=== PATIENT | male | born 1990 | race Caucasian/White ===

== ENCOUNTER 2017-01-03 20:19 | Emergency (ER) | payer MEDICAID, OTHER ==
[~2017-01-03] VITALS: Ht 170.2 cm; Wt 89.5 kg
[2017-01-03 20:23] VITALS: Ht 170.2 cm; Wt 89.5 kg
[2017-01-03] MEDS ORDERED: IBUPROFEN 600 MG TAB PO ONE (21:00)
[2017-01-03] MEDS ORDERED: DIPHTH/TET/ACEL PERTUSS (ADULT) 0.5 ML VIAL IM* ONE (21:00)
[2017-01-03] MEDS ORDERED: CEPH-443 PO (21:24)
[2017-01-03 21:53] VITALS: BP 138/66; PULSE 47; RESP 16
--- NOTE | 2017-01-07 12:14 | ERD ---
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 The patient is right-hand dominant. No other symptoms or injuries reported. ROS All systems reviewed and are negative except as per history of present illness. Medications Home Meds Active Scripts Cephalexin* (Keflex*) 500 Mg Capsule, 500 MG PO TID for 5 Days, #15 CAP Prov:SAURAV THOMPSON PA-C 01/03/17 Allergies Allergies: Coded Allergies: No Known Allergy (Unverified , 01/03/17) PMhx/Soc Medical and Surgical Hx: pt denies Medical Hx, pt denies Surgical Hx Hx Alcohol Use: No Hx Substance Use: No Hx Tobacco Use: No Smoking Status: Never smoker Physical Exam Vitals Vital Signs Date Time Temp Pulse Resp B/P Pulse Ox O2 Delivery O2 Flow Rate FiO2 01/03/17 21:53 47 16 138/66 100 Room Air 01/03/17 20:23 98.7 78 18 135/74 99 Physical Exam Const: Nontoxic, well-appearing male in no acute distress. Head: Atraumatic Eyes: Normal Conjunctiva ENT: Normal External Ears, Nose and Mouth. Skin: There is an approximate 2 cm laceration noted to the ventral surface of the left thumb. Back: No midline or flank tenderness Ext: No cyanosis, or edema Neur: Awake and alert Psych: Normal Mood and Affect Results 24 hrs Current Medications Medications (Trade) Dose Ordered Sig/Taylor Route PRN Reason Start Time Stop Time Status Last Admin Dose Admin Ibuprofen (Motrin) 600 mg ONCE ONCE PO 01/03/17 21:00 01/03/17 21:01 DC 01/03/17 21:13 Diphtheria/ Tetanus/Acell Pertussis (Adacel) 0.5 ml ONCE ONCE IM* 01/03/17 21:00 01/03/17 21:01 DC 01/03/17 21:13 Procedures/MDM 26-year-old male presents to the emergency department with complaints of left thumb laceration. Laceration Repair by me: Anesthesia: 1% lidocaine locally Location: Left thumb Tendon/Joint/Nerves: No injury Foreign body: None detected after copious irrigation and exploration Technique: Simple Interrupted Sutures Complexity: No subcutaneous sutures/mucosal repair/ edge excision Post Closure Length: 2 cm Patient's bleeding was easily controlled in the department and there is no indication of anemia. No evidence of compartment syndrome, neurologic injury, vascular injury, open joint, tendon laceration, or foreign body. Patient is appropriate for outpatient follow up. 48 hour wound check. Scar minimization instructions given. Departure Diagnosis: Primary Impression: Thumb laceration Encounter type: initial encounter Damage to nail status: without damage Foreign body presence: unspecified Laterality: left Qualified Code: S61.012A - Laceration of left thumb without damage to nail, foreign body presence unspecified, initial encounter Condition: Fair Patient Instructions: Laceration, Hand [facility] Usted se pack hecho un examen mdico de control que le indica que no est en jyothi condicin que requiera tratamiento urgente en el Departamento de Emergencia. Un estudio ms profundo y el tratamiento de grace condicin pueden esperar sin ningn riesgo hasta que usted sea atendida/o en el consultorio de grace mdico o jyothi cl christine. Es responsabilidad suya arreglar jyothi giselle para el seguimiento del lily. MANEJO DE CONDICIONES NO URGENTES EN EL FUTURO 1) Si usted tiene un mdico de atencin primaria: Usted debera llamar a grace mdico de atencin primaria antes de venir al departamento de emergencia. Despus de las horas de consultorio, grace doctor o grace asociado/a est disponible por telfono. El mdico o enfermero de milagro en el servicio telefnico puede asesorarle por alicia medio para atender el problema, o lily contrario se puede programar jyothi giselle. 2) Si usted no tiene un mdico de atencin primaria: Llame al mdico o clnica de referencia que aparece abajo barbara las horas de consultorio para hacer jyothi giselle para que le vean. CLINICAS: [facility] [phone] [address] [facility] [phone] [place] [phone] [facility] [phone] [facility] [phone] [facility] [phone] [address] Additional Instructions: Return in 2 days for wound recheck. Take all the antibiotics. Keep the wound clean, dry, and covered. Return in 7-10 days from today for suture removal. Call your primary care doctor TOMORROW for an appointment during the next 1-2 days.See the doctor sooner or return here if your condition worsens before your appointment time. SAURAV THOMPSON PA-C Jan 07, 2017 12:14
--- NOTE | 2017-01-07 12:14 | ERD ---
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 The patient is right-hand dominant. No other symptoms or injuries reported. ROS All systems reviewed and are negative except as per history of present illness. Medications Home Meds Active Scripts Cephalexin* (Keflex*) 500 Mg Capsule, 500 MG PO TID for 5 Days, #15 CAP Prov:SAURAV THOMPSON PA-C 01/03/17 Allergies Allergies: Coded Allergies: No Known Allergy (Unverified , 01/03/17) PMhx/Soc Medical and Surgical Hx: pt denies Medical Hx, pt denies Surgical Hx Hx Alcohol Use: No Hx Substance Use: No Hx Tobacco Use: No Smoking Status: Never smoker Physical Exam Vitals Vital Signs Date Time Temp Pulse Resp B/P Pulse Ox O2 Delivery O2 Flow Rate FiO2 01/03/17 21:53 47 16 138/66 100 Room Air 01/03/17 20:23 98.7 78 18 135/74 99 Physical Exam Const: Nontoxic, well-appearing male in no acute distress. Head: Atraumatic Eyes: Normal Conjunctiva ENT: Normal External Ears, Nose and Mouth. Skin: There is an approximate 2 cm laceration noted to the ventral surface of the left thumb. Back: No midline or flank tenderness Ext: No cyanosis, or edema Neur: Awake and alert Psych: Normal Mood and Affect Results 24 hrs Current Medications Medications (Trade) Dose Ordered Sig/Taylor Route PRN Reason Start Time Stop Time Status Last Admin Dose Admin Ibuprofen (Motrin) 600 mg ONCE ONCE PO 01/03/17 21:00 01/03/17 21:01 DC 01/03/17 21:13 Diphtheria/ Tetanus/Acell Pertussis (Adacel) 0.5 ml ONCE ONCE IM* 01/03/17 21:00 01/03/17 21:01 DC 01/03/17 21:13 Procedures/MDM 26-year-old male presents to the emergency department with complaints of left thumb laceration. Laceration Repair by me: Anesthesia: 1% lidocaine locally Location: Left thumb Tendon/Joint/Nerves: No injury Foreign body: None detected after copious irrigation and exploration Technique: Simple Interrupted Sutures Complexity: No subcutaneous sutures/mucosal repair/ edge excision Post Closure Length: 2 cm Patient's bleeding was easily controlled in the department and there is no indication of anemia. No evidence of compartment syndrome, neurologic injury, vascular injury, open joint, tendon laceration, or foreign body. Patient is appropriate for outpatient follow up. 48 hour wound check. Scar minimization instructions given. Departure Diagnosis: Primary Impression: Thumb laceration Encounter type: initial encounter Damage to nail status: without damage Foreign body presence: unspecified Laterality: left Qualified Code: S61.012A - Laceration of left thumb without damage to nail, foreign body presence unspecified, initial encounter Condition: Fair Patient Instructions: Laceration, Hand [facility] Usted se pack hecho un examen mdico de control que le indica que no est en jyothi condicin que requiera tratamiento urgente en el Departamento de Emergencia. Un estudio ms profundo y el tratamiento de grace condicin pueden esperar sin ningn riesgo hasta que usted sea atendida/o en el consultorio de grace mdico o jyothi cl christine. Es responsabilidad suya arreglar jyothi giselle para el seguimiento del lily. MANEJO DE CONDICIONES NO URGENTES EN EL FUTURO 1) Si usted tiene un mdico de atencin primaria: Usted debera llamar a grace mdico de atencin primaria antes de venir al departamento de emergencia. Despus de las horas de consultorio, grace doctor o grace asociado/a est disponible por telfono. El mdico o enfermero de milagro en el servicio telefnico puede asesorarle por alicia medio para atender el problema, o lily contrario se puede programar jyothi giselle. 2) Si usted no tiene un mdico de atencin primaria: Llame al mdico o clnica de referencia que aparece abajo barbara las horas de consultorio para hacer jyothi giselle para que le vean. CLINICAS: [facility] [phone] [address] [facility] [phone] [facility] [phone] [facility] [phone] [facility] [phone] [facility] [phone] [address] Additional Instructions: Return in 2 days for wound recheck. Take all the antibiotics. Keep the wound clean, dry, and covered. Return in 7-10 days from today for suture removal. Call your primary care doctor TOMORROW for an appointment during the next 1-2 days.See the doctor sooner or return here if your condition worsens before your appointment time. SAURAV THOMPSON PA-C Jan 07, 2017 12:14
--- NOTE | 2017-01-07 12:14 | ERD ---
ER Documentation Chief Complaint Chief Complaint left thumb laceration s/p cut w/knife 1 hour [employer] REPA[employer]ER HPI Patient is a 26-year-old male presenting to the emergency department with complaints of left thumb laceration after accidentally cutting himself with a knife 1 hour prior to arrival. The patient is right-hand dominant. No other symptoms or injuries reported. ROS All systems reviewed and are negative except as per history of present illness. Medications Home Meds Active Scripts Cephalexin* (Keflex*) 500 Mg Capsule, 500 MG PO TID for 5 Days, #15 CAP Prov:SAURAV THOMPSON PA-C 01/03/17 Allergies Allergies: Coded Allergies: No Known Allergy (Unverified , 01/03/17) PMhx/Soc Medical and Surgical Hx: pt denies Medical Hx, pt denies Surgical Hx Hx Alcohol Use: No Hx Substance Use: No Hx Tobacco Use: No Smoking Status: Never smoker Physical Exam Vitals Vital Signs Date Time Temp Pulse Resp B/P Pulse Ox O2 Delivery O2 Flow Rate FiO2 01/03/17 21:53 47 16 138/66 100 Room Air 01/03/17 20:23 98.7 78 18 135/74 99 Physical Exam Const: Nontoxic, well-appearing male in no acute distress. Head: Atraumatic Eyes: Normal Conjunctiva ENT: Normal External Ears, Nose and Mouth. Skin: There is an approximate 2 cm laceration noted to the ventral surface of the left thumb. Back: No midline or flank tenderness Ext: No cyanosis, or edema Neur: Awake and alert Psych: Normal Mood and Affect Results 24 hrs Current Medications Medications (Trade) Dose Ordered Sig/Taylor Route PRN Reason Start Time Stop Time Status Last Admin Dose Admin Ibuprofen (Motrin) 600 mg ONCE ONCE PO 01/03/17 21:00 01/03/17 21:01 DC 01/03/17 21:13 Diphtheria/ Tetanus/Acell Pertussis (Adacel) 0.5 ml ONCE ONCE IM* 01/03/17 21:00 01/03/17 21:01 DC 01/03/17 21:13 Procedures/MDM 26-year-old male presents to the emergency department with complaints of left thumb laceration. Laceration Repair by me: Anesthesia: 1% lidocaine locally Location: Left thumb Tendon/Joint/Nerves: No injury Foreign body: None detected after copious irrigation and exploration Technique: Simple Interrupted Sutures Complexity: No subcutaneous sutures/mucosal repair/ edge excision Post Closure Length: 2 cm Patient's bleeding was easily controlled in the department and there is no indication of anemia. No evidence of compartment syndrome, neurologic injury, vascular injury, open joint, tendon laceration, or foreign body. Patient is appropriate for outpatient follow up. 48 hour wound check. Scar minimization instructions given. Departure Diagnosis: Primary Impression: Thumb laceration Encounter type: initial encounter Damage to nail status: without damage Foreign body presence: unspecified Laterality: left Qualified Code: S61.012A - Laceration of left thumb without damage to nail, foreign body presence unspecified, initial encounter Condition: Fair Patient Instructions: Laceration, Hand [facility] Usted se pack hecho un examen mdico de control que le indica que no est en jyothi condicin que requiera tratamiento urgente en el Departamento de Emergencia. Un estudio ms profundo y el tratamiento de grace condicin pueden esperar sin ningn riesgo hasta que usted sea atendida/o en el consultorio de grace mdico o jyothi cl christine. Es responsabilidad suya arreglar jyothi giselle para el seguimiento del lily. MANEJO DE CONDICIONES NO URGENTES EN EL FUTURO 1) Si usted tiene un mdico de atencin primaria: Usted debera llamar a grace mdico de atencin primaria antes de venir al departamento de emergencia. Despus de las horas de consultorio, grace doctor o grace asociado/a est disponible por telfono. El mdico o enfermero de milagro en el servicio telefnico puede asesorarle por alicia medio para atender el problema, o lily contrario se puede programar jyothi giselle. 2) Si usted no tiene un mdico de atencin primaria: Llame al mdico o clnica de referencia que aparece abajo barbara las horas de consultorio para hacer jyothi giselle para que le vean. CLINICAS: [facility] 318 [phone] [address] [facility] [phone] [facility] [phone] [facility] [phone] [facility] [phone] [facility] [phone] [address] Additional Instructions: Return in 2 days for wound recheck. Take all the antibiotics. Keep the wound clean, dry, and covered. Return in 7-10 days from today for suture removal. Call your primary care doctor TOMORROW for an appointment during the next 1-2 days.See the doctor sooner or return here if your condition worsens before your appointment time. SAURAV THOMPSON PA-C Jan 07, 2017 12:14
== END 2017-01-03 21:54 | disposition home or self-care (01) ==
LOC: FTE 20:19
DX: S61.012A Laceration without foreign body of left thumb without damage to nail, initial encounter (principal); W26.0XXA Contact with knife, initial encounter; Y92.9 Unspecified place or not applicable
CPT/HCPCS: 12001; 90471; 90715; Z7502; Z7610